=== PATIENT | female | born 2000 | race African-American/Black ===

== ENCOUNTER 2020-12-16 08:56 | Emergency (ER) | payer OTHER ==
[~2020-12-16] VITALS: Ht 162.6 cm; Wt 50.8 kg
[2020-12-16] MEDS ORDERED: PRENMIS3 PO (09:10)
[2020-12-16] MEDS ORDERED: METOCLOPRAMIDE INJ 10MG/2ML VIAL (J2765 PER 1) IV ONE (11:20)
[2020-12-16] MEDS ORDERED: ACETAMINOPHEN 500 MG TAB PO ONE (11:20)
[2020-12-16] MEDS ORDERED: NS 1,000 ML IV ONE (11:20)
--- NOTE | 2020-12-16 11:46 | REP ---
INDICATION: abd pain, 10 weeks, N/V COMPARISON: None. TECHNIQUE: Transabdominal 1st trimester obstetrical ultrasound with Doppler evaluation. FINDINGS: Single live early intrauterine is appreciated. Gestational sac with yolk sac and pole identified. Holloway-rump length of 39 mm corresponds to 10 weeks 6 days gestational age with estimated date of delivery 07/07/2021. heart rate equals 163 beats per minute. No gross abnormalities are identified. IMPRESSION: Single live early intrauterine at 10 weeks 6 days gestational age. Complete anatomical assessment should be performed and 19-20 weeks. <Electronically signed by Kenny Swartz > 12/16/20 [id number]
[2020-12-16] MEDS ORDERED: ONDANSETRON 4MG/2ML VIAL IV ONE (12:10)
[2020-12-16 12:27] LABS: BASO % 0.4 % (0.0-1.0); EOS % 0.2 % (0.0-3.0); HEMATOCRIT 39.6 % (36.0-47.0); HEMOGLOBIN 13.3 g/dl (12.0-15.5); LYMPH % 18.2 % (24.0-44.0); MEAN CORPUSCULAR HEMOGLOBIN 29.1 pg (27.0-33.0); MEAN CORPUSCULAR HGB CONC 33.6 g/dl (32.0-36.5); MEAN CORPUSCULAR VOLUME 86.7 fl (80.0-96.0); MONO # 0.6 10^3/uL (0.0-0.8); MONO % 9.9 % (2.0-8.0); NEUTROPHILS % 71.1 % (36.0-66.0); PLATELET COUNT, AUTOMATED 323 10^3/uL (150-450); RED BLOOD COUNT 4.57 10^6/uL (4.00-5.40); WHITE BLOOD COUNT 5.7 10^3/uL (4.0-10.0)
[2020-12-16 13:13] LABS: ALBUMIN 3.6 GM/DL (3.2-5.2); ALT/SGPT 70 U/L (12-78); BILIRUBIN,DIRECT 0.2 MG/DL (0.0-0.2); BILIRUBIN,TOTAL 0.6 MG/DL (0.2-1.0); BLOOD UREA NITROGEN 9 MG/DL (7-18); CALCIUM LEVEL 9.8 MG/DL (8.5-10.1); CARBON DIOXIDE LEVEL 25 MEQ/L (21-32); CHLORIDE LEVEL 103 MEQ/L (98-107); CK-MB VALUE MASS 1.2 NG/ML (<3.6); CPK CREATINE PHOSPHOKINASE 73 U/L (26-192); CREATININE FOR GFR 0.64 MG/DL (0.55-1.30); GLOMERULAR FILTRATION RATE > 60.0 (>60); GLUCOSE, FASTING 100 MG/DL (70-100); HCG, SERUM QUANTITATIVE 132530 MIU/ML; LIPASE 79 U/L (73-393); MB/CK RELATIVE INDEX 1.64 (< OR =4); POTASSIUM SERUM 3.9 MEQ/L (3.5-5.1); SODIUM LEVEL 136 MEQ/L (136-145); TOTAL PROTEIN 7.7 GM/DL (6.4-8.2); TROPONIN I < 0.02 NG/ML (< 0.10)
[2020-12-16] MEDS ORDERED: MULTIVITAMIN -ADULT INJECTION 10 ML, THIAMINE INJection 100 MG, FOLIC ACID 1 MG in NS 1... IV ONE (13:35)
[2020-12-16 13:38] LABS: AMPHETAMINES LEVEL URINE NEGATIVE (NEGATIVE); BARBITURATES URINE NEGATIVE (NEGATIVE); BENZODIAZEPINES URINE NEGATIVE (NEGATIVE); CANNABINOIDS URINE NEGATIVE (NEGATIVE); COCAINE METABOLITE URINE NEGATIVE (NEGATIVE); METHADONE URINE NEGATIVE (NEGATIVE); OPIATES URINE NEGATIVE (NEGATIVE); PHENCYCLIDINE URINE NEGATIVE (NEGATIVE)
[2020-12-16] MEDS ORDERED: ONDA4TAB6 PO (13:53)
[2020-12-16] MEDS ORDERED: PYRI25TA2 PO (13:56)
[2020-12-16 15:31] VITALS: BP 118/76
--- NOTE | 2020-12-16 21:49 | ECGEPIP ---
[facility] - ED Test Date: 2020-12-16 Pat Name: DIALLO OAKLEY Department: Room: - Gender: Female Lens Blank Gauger: MIRELA : 2000 Requested By: CAITLIN Arrington PA-C Order Number: [id number] Reading MD: Fredy Conner Measurements Intervals Walsh Rate: 98 P: 69 AK: 136 QRS: 63 QRSD: 74 T: 24 QT: 366 QTc: 467 Interpretive Statements Normal sinus rhythm Comparison tracing not on file Electronically Signed on 12-16-2020 21:48:54 EDT by Fredy Conner
== END 2020-12-16 15:33 | disposition home or self-care (01) ==
LOC: M ED 08:56
DX: O26.891 Other specified pregnancy related conditions, first trimester (principal); O21.9 Vomiting of pregnancy, unspecified; Z32.01 Encounter for pregnancy test, result positive; Z3A.10 10 weeks gestation of pregnancy; Z87.59 Personal history of other complications of pregnancy, childbirth and the puerperium
CPT/HCPCS: 76801; 80048; 80076; 80307; 81001; 82550; 82553; 83690; 84484; 84702; 85025; 87086; 93005; 96374; 96375; 99284; J2405; J2765

== ENCOUNTER 2021-07-11 23:42 | Inpatient (IN) | payer OTHER ==
[~2021-07-11] VITALS: Ht 165.1 cm; Wt 63.6 kg
[2021-07-11 23:41] VITALS: BP 135/78
[~2021-07-11 23:42] MED LIST: ONDA4TAB6 PO; PRENMIS3 PO; PYRI25TA2 PO
[2021-07-11] MEDS ORDERED: LR 1,000 ML IV ONE (23:50)
[2021-07-12] VITALS (30 sets, daily range): BP systolic 102–145; BP diastolic 51–94
[2021-07-12] MEDS ORDERED: LACTATED RINGER'S 1000 ML IV STA (00:01)
[2021-07-12] MEDS ORDERED: LR 1,000 ML IV SCH ×2 (00:05→06:55)
[2021-07-12] MEDS ORDERED: OXYTOCIN DRIP 30 UNITS in IV 1 EA IV PRN ×4 (00:05)
[2021-07-12] MEDS ORDERED: LIDOCAINE 1% MDV 20ML VIAL INFIL PRN (00:05)
[2021-07-12 00:23] LABS: HEMATOCRIT 36.2 % (36.0-47.0); MEAN CORPUSCULAR HEMOGLOBIN 30.4 pg (27.0-33.0); MEAN CORPUSCULAR HGB CONC 33.1 g/dl (32.0-36.5); MEAN CORPUSCULAR VOLUME 91.6 fl (80.0-96.0); PLATELET COUNT, AUTOMATED 247 10^3/uL (150-450); RED BLOOD COUNT 3.95 10^6/uL (4.00-5.40); WHITE BLOOD COUNT 9.4 10^3/uL (4.0-10.0)
[2021-07-12] MEDS ORDERED: FENTANYL 2MCG/ML ROPIVACAINE 0.2% IN 0.9% NACL 100ML IVBAG As Ordered ONE (00:54)
[2021-07-12] MEDS ORDERED: ePHEDrine SULFATE 25 MG/5 ML(5MG/ML) SYRINGE IV PRN (00:55)
[2021-07-12] MEDS ORDERED: LACTATED RINGER'S 1000 ML IV PRN (00:55)
[2021-07-12] MEDS ORDERED: ONDANSETRON 4MG/2ML VIAL IV PRN ×2 (00:55→06:55)
[2021-07-12] MEDS ORDERED: FENTANYL/ROPIVACAINE/NACL BAG 100 ML EPIDURAL SCH (00:55)
[2021-07-12] MEDS ORDERED: REFRIGERATOR IV KEYS XX PRN (00:55)
[2021-07-12] MEDS ORDERED: EPIDURAL COMMENT XX SCH (00:55)
[2021-07-12] MEDS ORDERED: diphenhydrAMINE 50MG/ML VIAL (J1200) IV PRN (00:55)
[2021-07-12] MEDS ORDERED: EPIDURAL/PCA KEYS XX PRN (00:55)
[2021-07-12] MEDS ORDERED: NALOXONE INJ 0.4MG/1ML VIAL (J2310 PER 1MG) IV PRN (00:55)
[2021-07-12 06:20] LABS: CORD GAS ABE V -9.1; CORD GAS HCO3 V 19.6 MEQ/L; CORD GAS O2 SAT V 48.7 %; CORD GAS PH V 7.185 UNITS; CORD GAS PO2 V 26.4 mmHg; CORD GAS SBC V 16.2 MEQ/L; CORD GAS TCO2 V 21.2 MEQ/L
[2021-07-12 06:24] LABS: CORD GAS ABE A -10.9; CORD GAS HCO3 A 18.6 MEQ/L; CORD GAS PCO2 A 55.6 mmHg; CORD GAS PH A 7.142 UNITS; CORD GAS PO2 A 26.7 mmHg; CORD GAS TCO2 A 20.3 MEQ/L
[2021-07-12] MEDS ORDERED: MEASLES,MUMPS,RUBELLA VACCINE INJ (MMR-II) (90707) SC SCH (06:55)
[2021-07-12] MEDS ORDERED: PROMETHAZINE 25 MG TAB PO PRN (06:55)
[2021-07-12] MEDS ORDERED: METHYLERGONOVINE MALEATE 0.2 MG TAB PO PRN (06:55)
[2021-07-12] MEDS ORDERED: DOCUSATE SODIUM 100MG CAPSULE PO PRN (06:55)
[2021-07-12] MEDS ORDERED: DIBUCAINE 1% OINTMENT 30GM TOP PRN (06:55)
[2021-07-12] MEDS ORDERED: RHOGAM 300 MCG (1500 IU) INJ (J2790) IM SCH (06:55)
[2021-07-12] MEDS: IBUPROFEN 800 MG TAB PO SCH ×3 (07:19→22:04)
[2021-07-12] MEDS: ACETAMINOPHEN 500 MG TAB PO SCH ×3 (07:53→19:45)
[2021-07-12] MEDS: PRENATAL VITAMINS CHEWABLE TABLET PO SCH (09:00)
[2021-07-13] MEDS: ACETAMINOPHEN 500 MG TAB PO SCH ×4 (01:54→19:47)
[2021-07-13 06:00] VITALS: BP 104/51
[2021-07-13] MEDS: IBUPROFEN 800 MG TAB PO SCH ×3 (06:05→22:10)
[2021-07-13 07:10] LABS: HEMATOCRIT 32.8 % (36.0-47.0); HEMOGLOBIN 10.7 g/dl (12.0-15.5); MEAN CORPUSCULAR HEMOGLOBIN 29.6 pg (27.0-33.0); MEAN CORPUSCULAR HGB CONC 32.6 g/dl (32.0-36.5); MEAN CORPUSCULAR VOLUME 90.9 fl (80.0-96.0); PLATELET COUNT, AUTOMATED 189 10^3/uL (150-450); RED BLOOD COUNT 3.61 10^6/uL (4.00-5.40); WHITE BLOOD COUNT 11.2 10^3/uL (4.0-10.0)
[2021-07-13] MEDS: PRENATAL VITAMINS CHEWABLE TABLET PO SCH (10:54)
[2021-07-13 18:00] VITALS: BP 118/63
[2021-07-14] MEDS: ACETAMINOPHEN 500 MG TAB PO SCH ×2 (01:59→08:16)
[2021-07-14] MEDS: IBUPROFEN 800 MG TAB PO SCH (05:57)
[2021-07-14 06:00] VITALS: BP 126/67
[2021-07-14] MEDS ORDERED: ACET-683 PO (06:35)
[2021-07-14] MEDS ORDERED: COLA100C5 PO (06:35)
[2021-07-14] MEDS ORDERED: IBUP80TA PO (06:35)
[2021-07-14] MEDS: PRENATAL VITAMINS CHEWABLE TABLET PO SCH (08:15)
== END 2021-07-14 11:50 | disposition home or self-care (01) | DRG 807 ==
LOC: M LDO 23:42 → M LDI 23:49 → M OBS 07-12 08:54
PROVIDERS: ADMIT Obstetrics & Gynecology; ATTEND Obstetrics & Gynecology
PROC: 10E0XZZ Delivery of Products of Conception, External Approach (ICD-10-PCS; principal; 2021-07-12)
PROC: 0KQM0ZZ Repair Perineum Muscle, Open Approach (ICD-10-PCS; 2021-07-12)
DX: O32.6XX0 Maternal care for compound presentation, not applicable or unspecified (principal); Z37.0 Single live birth; Z3A.39 39 weeks gestation of pregnancy; O70.1 Second degree perineal laceration during delivery